=== PATIENT | male | born 1980 | race Caucasian/White ===

== ENCOUNTER → 2019-11-15 07:01 | Outpatient (CLI) | payer OTHER, SELFPAY ==
--- NOTE | 2019-11-15 | DI.MRI.S_ITS ---
PROCEDURE: MR CERVICAL SPINE WO CON INDICATIONS: Radiculopathy, site unspecified TECHNIQUE: Noncontrast sagittal T1 spin echo and T2 fast spin echo, sagittal STIR, foraminal oblique sagittal T2 fast spin echo, and axial gradient echo or T2 fast spin echo through the cervical spine. COMPARISON: None. FINDINGS: Image quality: Excellent. Alignment and Curvature: There is loss of normal cervical lordosis. There is mild grade 1 retrolisthesis of C3 on C4, C4 on C5, and C5 on C6. Bone Marrow: Marrow demonstrates normal overall signal. There is mild reactive signal within the endplates adjacent to the C3-C4, C4-C5, C5-C6, and C6-C7 intervertebral discs. Spinal Cord: Visualized spinal cord has normal size and signal. No cerebellar tonsillar herniation. Paraspinous Soft Tissues: No paravertebral masses. Prevertebral soft tissues are normal in thickness. C2-C3: Mild disc height loss and desiccation. Mild facet and uncovertebral hypertrophy bilaterally. Mild canal stenosis. Mild bilateral foraminal stenosis. C3-C4: Moderate disc height loss and desiccation. Mild diffuse disc bulge. Mild facet and uncovertebral hypertrophy bilaterally. Moderate canal stenosis. Mild bilateral foraminal stenosis. C4-C5: Mild disc height loss and desiccation. Mild diffuse disc bulge with superimposed left far lateral protrusion. Mild facet and uncovertebral hypertrophy bilaterally. Moderate canal stenosis. Moderate left and mild right foraminal stenosis. C5-C6: Moderate disc height loss and desiccation. Mild diffuse disc bulge. Mild facet and uncovertebral hypertrophy bilaterally. Mild canal stenosis. Mild bilateral foraminal stenosis. C6-C7: Mild disc height loss and desiccation. Mild diffuse disc bulge. Mild facet and uncovertebral hypertrophy bilaterally. Mild canal stenosis. Mild bilateral foraminal stenosis. C7-T1: Mild disc desiccation and diffuse disc bulge. Mild facet and uncovertebral hypertrophy bilaterally. Mild canal stenosis. Mild right and greater than left foraminal stenosis. IMPRESSION: 1. Multilevel degenerative disc and facet disease, as well as uncovertebral hypertrophy. 2. Multilevel canal stenosis, worst at C3-C4 and C4-C5, where there are moderate canal stenosis present. 3. Multilevel foraminal stenoses, worst at C4-C5 on the left where there is moderate foraminal stenosis. Dictated by: Little Candelario M.D. on 11/15/2019 at 8:35 Approved by: Little Candelario M.D. on 11/15/2019 at 8:39
== END ==
PROVIDERS: PCP Student in an Organized Health Care Education/Training Program; Referring Provider Student in an Organized Health Care Education/Training Program; Visit Provider Student in an Organized Health Care Education/Training Program
DX: M50.11 Cervical disc disorder with radiculopathy, high cervical region (principal); M48.02 Spinal stenosis, cervical region
CPT/HCPCS: 72141

== ENCOUNTER → 2020-02-13 09:12 | Outpatient (CLI) | payer OTHER, SELFPAY ==
[2020-02-13 10:23] LABS: Hemoglobin A1C% w Est Avg Glu 5.2 % (4.0-6.0)
[2020-02-13 11:05] LABS: Cholesterol 252 mg/dL (140-199); HDL Cholesterol 48 mg/dL (40-60); LDL Cholesterol Calculated 176 mg/dL (<100); Triglycerides 141 mg/dL (35-150)
== END ==
PROVIDERS: PCP Family Medicine; Referring Provider Family Medicine; Visit Provider Family Medicine
DX: Z00.01 Encounter for general adult medical examination with abnormal findings (principal)
CPT/HCPCS: 36415; 80061; 83036

== ENCOUNTER → 2022-05-07 09:17 | Outpatient (CLI) | payer OTHER, SELFPAY ==
[2022-05-07 10:11] LABS: Add Manual Diff / Slide Review NO; Basophils Absolute Auto 0 /uL (0-100); Basophils Percent Auto 0.7 % (0-2); Eosinophils Absolute Auto 100 /uL (0-450); Eosinophils Percent Auto 2.3 % (2-4); Hematocrit 46.1 % (41-53); Hemoglobin 15.9 g/dL (13.5-17.5); Lymphocytes Absolute Auto 1500 /uL (1100-4500); Lymphocytes Percent Auto 31.8 % (25-40); Mean Corpuscular HGB Conc 34.5 % (30-36); Mean Corpuscular Hemoglobin 31.4 PG (26-34); Mean Corpuscular Volume 90.8 fL (80-100); Monocytes Absolute Auto 700 /uL (0-900); Neutrophils Absolute Auto 2400 /uL (1500-7000); Neutrophils Percent Auto 50.2 % (50-75); Platelet Count 148 X10^3/uL (150-400); Red Blood Cell Count 5.08 X10^6/uL (4.5-5.9); Red Cell Distribution Width 13.5 % (11.6-14.8); White Blood Cell Count 4.8 X10^3/uL (4.5-11.0)
[2022-05-07 10:34] LABS: Alanine Aminotransferase 86 IU/L (<50); Albumin 4.6 g/dL (3.5-5.0); Albumin Globulin Ratio 1.5 (1.0-2.8); Alkaline Phosphatase 60 U/L (38-126); Aspartate Aminotransferase 45 IU/L (17-59); BUN Creatinine Ratio 19.5 (6-22); Bilirubin Total 0.8 mg/dL (0.2-1.3); Blood Urea Nitrogen 17 mg/dL (9-20); Calcium 9.5 mg/dL (8.4-10.2); Carbon Dioxide 29 mmol/L (22-32); Chloride 102 mmol/L (98-107); Cholesterol 266 mg/dL (140-199); Estimated Glomerular Filt Rate > 60 mL/min (>60); Glucose 97 mg/dL (70-100); HDL Cholesterol 46 mg/dL (40-60); HEMOLYSIS < 15 (0-50); LDL Cholesterol Calculated 179 mg/dL (<100); Potassium 4.8 mmol/L (3.4-5.1); Sodium 139 mmol/L (137-145); Total Protein 7.6 g/dL (6.3-8.2); Triglycerides 204 mg/dL (35-150)
== END ==
PROVIDERS: PCP Family Medicine; Referring Provider Family Medicine; Visit Provider Family Medicine
DX: E78.2 Mixed hyperlipidemia (principal); M47.812 Spondylosis without myelopathy or radiculopathy, cervical region; M48.02 Spinal stenosis, cervical region
CPT/HCPCS: 36415; 80053; 80061; 85025

== ENCOUNTER → 2023-02-14 15:21 | Outpatient (CLI) | payer OTHER, SELFPAY ==
--- NOTE | 2023-02-14 15:23 | DI.US.S_ITS ---
PROCEDURE: US SCROTUM INDICATIONS: PEA SIZED LUMP X 2 WEEKS LEFT LATERAL TO BASE OF PENIS TECHNIQUE: Real-time scanning was performed of the scrotum and testicles, with image documentation. Color and pulse Doppler interrogation was performed of both testicles. COMPARISON: None. FINDINGS: Right: Testicle is normal in size at 4.8 x 2.7 x 1.9 cm, and homogenous in echotexture. Epididymis is normal in overall size and morphology. Epididymal head cyst measuring 0.5 cm. No hydrocele or varicoceles. Overlying scrotal skin is normal in thickness. Left: Testicle is normal in size at 4.8 x 2.9 x 1.9 cm, and homogeneous in echotexture. Macro calcification in the right testicle measuring 0.3 cm. Epididymis is normal in overall size and morphology. Epididymal head cyst measuring 0.5 cm. No hydrocele or varicoceles. Overlying scrotal skin is normal in thickness. Palpable abnormality at the left groin corresponds to an oval subcutaneous heterogeneous hypoechoic mass lateral to the base of the penis measuring 1 x 0.8 x 0.6 cm. There is internal vascularity and calcification. Doppler: Color and pulse Doppler demonstrate normal and symmetric arterial flow in both testicles. IMPRESSION: 1. Palpable abnormality at the left groin corresponds to a subcutaneous hypoechoic mass with internal vascularity and calcifications measuring 1 cm. Etiology is uncertain. Ultrasound-guided biopsy could be considered for further diagnosis. Consider urology consultation. 2. Small benign calcification in the left testicle measuring 3 mm. No testicular mass. 3. Small benign epididymal head cysts bilaterally. 4. No varicocele. No hydrocele. Dictated by: Felice Obregon M.D. on 02/14/2023 at 19:24 Approved by: Felice Obregon M.D. on 02/14/2023 at 19:45
== END ==
PROVIDERS: PCP Family Medicine; Referring Provider Family Medicine; Visit Provider Family Medicine
DX: N48.89 Other specified disorders of penis (principal); N50.3 Cyst of epididymis; N50.9 Disorder of male genital organs, unspecified
CPT/HCPCS: 76870

== ENCOUNTER → 2023-05-25 10:11 | Outpatient (CLI) | payer OTHER, SELFPAY ==
[2023-05-25 11:24] LABS: Add Manual Diff / Slide Review NO; Basophils Absolute Auto 0 /uL (0-100); Basophils Percent Auto 0.5 % (0-2); Eosinophils Absolute Auto 100 /uL (0-450); Eosinophils Percent Auto 2.5 % (2-4); Hematocrit 46.9 % (41-53); Hemoglobin 15.9 g/dL (13.5-17.5); Lymphocytes Absolute Auto 1200 /uL (1100-4500); Lymphocytes Percent Auto 33.5 % (25-40); Mean Corpuscular Hemoglobin 30.8 PG (26-34); Mean Corpuscular Volume 90.7 fL (80-100); Monocytes Absolute Auto 600 /uL (0-900); Monocytes Percent Auto 16.5 % (3-14); Neutrophils Absolute Auto 1800 /uL (1500-7000); Platelet Count 169 X10^3/uL (150-400); Red Blood Cell Count 5.17 X10^6/uL (4.5-5.9); Red Cell Distribution Width 13.2 % (11.6-14.8); White Blood Cell Count 3.7 X10^3/uL (4.5-11.0)
[2023-05-25 11:43] LABS: Alanine Aminotransferase 88 IU/L (<50); Albumin 4.6 g/dL (3.5-5.0); Albumin Globulin Ratio 1.4 (1.0-2.8); Alkaline Phosphatase 54 U/L (38-126); Aspartate Aminotransferase 58 IU/L (17-59); BUN Creatinine Ratio 24.1 (6-22); Bilirubin Total 0.8 mg/dL (0.2-1.3); Blood Urea Nitrogen 19 mg/dL (9-20); Calcium 9.7 mg/dL (8.4-10.2); Carbon Dioxide 28 mmol/L (22-32); Chloride 100 mmol/L (98-107); Cholesterol 275 mg/dL (140-199); Estimated Glomerular Filt Rate > 60 mL/min (>60); Globulin 3.2 g/dL (1.7-4.1); Glucose 94 mg/dL (70-100); HDL Cholesterol 47 mg/dL (40-60); HEMOLYSIS < 15 (0-50); LDL Cholesterol Calculated 200 mg/dL (<100); Potassium 4.7 mmol/L (3.4-5.1); Sodium 137 mmol/L (137-145); Total Protein 7.8 g/dL (6.3-8.2); Triglycerides 140 mg/dL (35-150)
[2023-05-25 12:14] LABS: TSH w/ Reflex to FT4 1.22 uIU/mL (0.47-4.68)
[2023-05-27 04:09] LABS: Apolipoprotein B 148 mg/dL (<90)
[2023-05-29 21:28] LABS: Lipoprotein (a) 91.4 nmol/L (<75.0)
== END ==
PROVIDERS: PCP Family Medicine; Referring Provider Family Medicine; Visit Provider Family Medicine
DX: E78.5 Hyperlipidemia, unspecified (principal); Z80.0 Family history of malignant neoplasm of digestive organs; R74.8 Abnormal levels of other serum enzymes; Z82.49 Family history of ischemic heart disease and other diseases of the circulatory system
CPT/HCPCS: 36415; 80053; 80061; 82172; 83695; 84443; 85025

== ENCOUNTER → 2023-09-13 06:51 | Outpatient (CLI) | payer OTHER, SELFPAY ==
--- NOTE | 2023-09-13 06:52 | DI.ECHO.S_ITS ---
[facility] : : [address] : : [place] : : [id number] : : Phone: [phone] Echocardiogram Report + + :Name: ANNA HOOD Study Date: 09/13/2023 Height: 68 in : :Hospital ReadingLocation: Weight: 167 lb : : Gender: Male BSA: 1.9 m2 : :: 1980 Age: 43 yrs BP: 120/75 mmHg: :Reason For Study: SYSTOLIC MURMUR : :Ordering Physician: MADELYN KERR Performed By: Keturah Alvarado : :Referring: MADELYN KERR : + + Interpretation Summary 1. The left ventricular contractility is normal. Estimated ejection fraction is greater than 60% with no segmental wall motion abnormalities. No left ventricular hypertrophy present. Normal diastolic function. 2. The right ventricular contractility is normal. 3. The right ventricular cavity is mildly dilated. All other cardiac chambers are normal size. 4. No significant valvular abnormalities are appreciated. 5. No obvious intracardiac shunts. 6. No obvious intracardiac masses nor thrombi appreciated. 7. No hemodynamically significant pericardial effusion present. Conclusion: Normal biventricular function with mildly enlarged right ventricle with no significant valvular abnormalities nor intracardiac shunts. Procedure: A two-dimensional transthoracic echocardiogram with color flow and Doppler was performed. The study quality was technically adequate. There is no prior echocardiogram noted for this patient. The patient was in sinus rhythm with heart rates between 63-73 bpm during the exam. Left Ventricle: The left ventricle is normal in size and wall thickness. The ejection fraction is estimated to be 60-65%. Right Ventricle: The right ventricle is mildly dilated. The right ventricular systolic function is normal. Atria: The left atrial size is normal. The right atrium is normal in size. There is no Doppler evidence for an interatrial shunt. Mitral Valve: The mitral valve is normal in structure and function. There is trace mitral regurgitation. Aortic Valve: The aortic valve is trileaflet. The aortic valve opens well. There is no aortic valve stenosis. No aortic regurgitation is present. Tricuspid Valve: The tricuspid valve is normal in structure and function. There is trace tricuspid regurgitation. Pulmonic Valve: The pulmonic valve leaflets are thin and pliable; valve motion is normal. There is mild pulmonic regurgitation. Great Vessels: The aortic root is normal size. The dimensions of the ascending aorta are normal. The IVC is of normal diameter and collapses greater than 50% with a sniff. This suggests a low right atrial pressure of 3 mm Hg. Pericardium/ Pleura There is no pericardial effusion. There is no pleural effusion. MMode/2D Measurements & Calculations LVIDd: 4.7 cm LVOT diam: 2.1 cm LVIDs: 2.9 cm Ao root diam: 3.3 cm FS: 37.7 % asc Aorta Diam: 3.5 cm IVSd: 1.0 cm Ao Arch Diam (Prox Trans): 2.7 cm LVPWd: 1.0 cm LV gomes. diameter/BSA (cm/m^2): 2.5 LV sys. diameter/BSA (cm/m^2): 1.6 LA A2 area: 19.7 cm2 RA long axis: 4.9 cm LA A4 area: 15.7 cm2 RA area: 15.6 cm2 LA length (vol): 5.2 cm RA vol: 42.0 ml LA vol: 50.9 ml RA : 22.2 ml/m2 LA vol index: 26.9 ml/m2 IVC diam: 1.8 cm RVD1 (basal): 4.5 cm RVD2 (mid): 3.6 cm TAPSE: 1.7 cm Doppler Measurements & Calculations Ao V2 max: 124.5 cm/sec LVOT Max Kt: 109.5 cm/sec Ao V2 mean: 91.7 cm/sec LV V1 max P.8 mmHg Ao max P.2 mmHg LV V1 VTI: 21.4 cm Ao mean P.7 mmHg COLTEN(I,D): 3.1 cm2 Ao V2 VTI: 24.6 cm COLTEN(V,D): 3.2 cm2 sev ratio: 0.87 COLTEN indexed to BSA (cm^2/m^2): 1.6 MV E max kt: 66.3 cm/sec PA V2 max: 115.4 cm/sec MV A max kt: 47.8 cm/sec PA V2 mean: 81.8 cm/sec MV E/A: 1.4 PA mean P.0 mmHg Med Peak E' Kt: 10.3 cm/sec PA pr(Accel): 17.3 mmHg E/E' med: 6.4 Lat Peak E' Kt: 15.8 cm/sec E/E' lat: 4.2 E/e' average: 5.3 MV dec time: 0.30 sec SV(LVOT): 76.5 ml Reading Physician:
== END ==
LOC: ECHO 06:52
PROVIDERS: PCP Family Medicine; Referring Provider Internal Medicine; Visit Provider Internal Medicine
DX: I37.1 Nonrheumatic pulmonary valve insufficiency (principal); R01.1 Cardiac murmur, unspecified
CPT/HCPCS: 93306

== ENCOUNTER 2024-02-01 16:16 | Emergency (ER) | payer OTHER, SELFPAY ==
[2024-02-01 16:21] VITALS: BP 152/72; PULSE 67; RESP 17; TEMP 36.6; O2SAT 97; BMI 25.8
--- NOTE | 2024-02-01 16:25 | DI.RAD.S_ITS ---
PROCEDURE: XR FINGER RT MIN 2V INDICATIONS: injury TECHNIQUE: AP hand, 2 views of the 4th finger(s) acquired. COMPARISON: None. FINDINGS: Bones: No fractures or dislocations. No suspicious bony lesions. Soft tissues: No suspicious soft tissue calcifications. IMPRESSION: No displaced fractures can be seen on this study. Dictated by: Michael Sotelo M.D. on 02/01/2024 at 15:52 Approved by: Michael Sotelo M.D. on 02/01/2024 at 15:52
--- NOTE | 2024-02-01 17:57 | ED.UPPEXIN ---
HPI - Extremity Injury (Upper) <Yolanda Garcia PA-C - Last Filed: 02/02/24 10:53> General Chief Complaint: Extremity Injury, Upper Stated Complaint: crushed right ring finger Time Seen by Provider: 02/01/24 17:57 Source: patient Mode of arrival: Ambulatory History of Present Illness HPI narrative: Patient is a very pleasant 43-year-old male that presents to the emergency room department with complaints of right ring finger soft tissue swelling, bruising. Patient is concerned because the distal aspect of his ring middle finger is bruised, and has some temperature change. Patient was working out this morning, he was doing a kettle zepeda workout, he was on his knees, he was doing and a workout, and was rotating the kettle zepeda around his head, kind of lost control of the Kettle zepeda and fell to the side and ended up having the 35 lb kettle zepeda land on his right hand contusing the right ring finger. Patient went about his day today, meetings, no issues no problems and then he noted later today that the finger started to get more bruised, increasing swelling, and then he noticed some mild temperature changes. He does not currently have a substantial amount of pain, he does have some mild limited range of motion at the PIP joint, cap refill is mildly delayed, he has been attempting to elevate it while he has been here in the emergency department. He did not elevate it throughout the day he has been working at home and doing his normal activities, doing meetings, using the phone, and using his hands. Currently this time he has does not have any other further complaints. Related Data Home Medications Medication Instructions Recorded Confirmed atorvastatin 20 mg tablet 20 mg PO DAILY 02/01/24 02/01/24 Allergies Allergy/AdvReac Type Severity Reaction Status Date / Time No Known Drug Allergies Allergy Verified 02/01/24 16:24 Review of Systems <Yolanda Garcia PA-C - Last Filed: 02/02/24 10:53> Review of Systems Narrative: Negative except as above Musculoskeletal Comments: Right ring finger bruising, distal aspect, limited range motion, some temperature change, mild delay in cap refill. Patient History <Yolanda Garcia PA-C - Last Filed: 02/02/24 10:53> Medical History Spermatocele Family history of aortic stenosis Liver enzyme elevation Family hx of colon cancer Neoplasm of uncertain behavior of skin Hyperlipidemia Neck pain (~2017) Shoulder pain (~2014) Chronic back pain (~2016) Chicken pox Common wart Cervical stenosis of spine Cervical spine degeneration Surgical History History of vasectomy (~09/2019) H/O circumcision Infantile hernia (~1979) Family History Grandfather Cancer Grandfather Diabetes mellitus Father Cancer Gout Kidney stones Grandmother Cancer Social History marital status: number of children: 4 housing: house education level: college occupational status: employed Previous occupational history: Executive Smoking Status: Never smoker alcohol intake: current (Social, infrequent) caffeine: Yes Type(s) of exercise: bicycling, weight lifting and running frequency: 5-6 times per week duration: > 90 minutes/day Smoking Status: Never smoker alcohol intake frequency: a few times a week Substance Use Type: does not use Exam <Yolanda Garcia PA-C - Last Filed: 02/02/24 10:53> Initial Vital Signs Initial Vital Signs: Vital Signs Temperature 98 F 02/01/24 16:21 Pulse Rate 67 02/01/24 16:21 Respiratory Rate 17 02/01/24 16:21 Blood Pressure 152/72 H 02/01/24 16:21 Pulse Oximetry 97 02/01/24 16:21 Oxygen Delivery Method Room Air 02/01/24 16:21 reviewed Const General: cooperative, healthy appearing, comfortable, well developed, well groomed, acute distress, No in distress and No anxious Eyes General: Yes appearance normal, both eyes and all related structures Pupils: PERRL and normal by confrontation EOM: EOM intact bilaterally Skin Other: Bruising noted to the distal aspect of the right ring finger, mildly delayed cap refill, mild coolness noted, pulses are still present, range of motion is not impacted. Neuro Other: Cranial nerves are grossly intact Extrem Other: Range of motion, strength, pulses, cap refill preserved in the upper and lower extremities The right hand range of motion, strength, pulses, cap refill are preserved. Examination of the right thing ring finger shows range motion at the PIP joint is mildly decreased, there is a moderate amount of soft tissue swelling, bruising noted to the distal aspect of the right ring finger, some mild discomfort and pain with palpation, mild decrease in cap refill, there some mild coolness noted on exam. Patient has not been elevating the hand. Cap refill distal to the finger is intact. Pulses are present. There is no substantial discomfort or pain with movement of the finger. There was no sharp shooting pains, there is no numbness or tingling, patient still has discomfort and pain upon examination. Psych Other: Apparent, mental status, speech, movement, mood, affect, attitude, thought process, content, judgment are intact. <Helen Chacon MD - Last Filed: 02/02/24 18:50> Initial Vital Signs Initial Vital Signs: Vital Signs Temperature 98 F 02/01/24 16:21 Pulse Rate 67 02/01/24 16:21 Respiratory Rate 17 02/01/24 16:21 Blood Pressure 152/72 H 02/01/24 16:21 Pulse Oximetry 97 02/01/24 16:21 Oxygen Delivery Method Room Air 02/01/24 16:21 Scores <Yolanda Garcia PA-C - Last Filed: 02/02/24 10:53> GCS Citation: 15 Course <Yolanda Garcia PA-C - Last Filed: 02/02/24 10:53> Orders Ordered: ED Orders 02/01/24 16:25 XR finger RT min 2V Stat Vital Signs Vital signs: Vital Signs - 8 hr 02/01/24 16:21 Temperature 98 F Pulse Rate 67 Respiratory Rate 17 Blood Pressure 152/72 H Pulse Oximetry 97 Oxygen Delivery Method Room Air Reviewed <Helen Chacon MD - Last Filed: 02/02/24 18:50> Orders Ordered: ED Orders 02/01/24 16:25 XR finger RT min 2V Stat Vital Signs Vital signs: Vital Signs - 8 hr 02/01/24 16:21 Temperature 98 F Pulse Rate 67 Respiratory Rate 17 Blood Pressure 152/72 H Pulse Oximetry 97 Oxygen Delivery Method Room Air MDM - Extremity Injury (Upper) <Yolanda Garcia PA-C - Last Filed: 02/02/24 10:53> Imaging Data Extremity x-ray #1: Radiologist's Impression: [address] [address] XRay Report Signed Patient: Chele Peraza MR#: [id number] : 1980 Acct:[id number] Age/Sex: 43 / M Date of Service: 02/01/24 Loc: ED Accession Number: [id number] Procedure: XR finger RT min 2V Ordering Provider: Helen Chacon MD PROCEDURE: XR FINGER RT MIN 2V INDICATIONS: injury TECHNIQUE: AP hand, 2 views of the 4th finger(s) acquired. COMPARISON: None. FINDINGS: Bones: No fractures or dislocations. No suspicious bony lesions. Soft tissues: No suspicious soft tissue calcifications. IMPRESSION: No displaced fractures can be seen on this study. Dictated by: Michael Sotelo M.D. on 02/01/2024 at 15:52 Approved by: Michael Sotelo M.D. on 02/01/2024 at 15:52 [facility] Narrative Medical decision making narrative: Patient is a very pleasant 43-year-old male presents to the emergency department today with discomfort pain and soft tissue swelling bruising, and the pad of the right distal ring finger. Patient dropped a 35 lb kettle bowel on the right ring finger earlier today while he was working out. Patient now presents to the emergency room department with concerns of soft tissue swelling, some discomfort and pain but some mild coolness in the distal tip. Limited range of motion at the PIP joint, x-rays negative for acute fracture. Cap refill is mildly delayed, pulses are present. Limited range of motion. Currently at this time pulses are present, cap refill is mildly delayed, some mild coolness, no signs for subungual hematoma, some mild discomfort on range of motion. Supportive therapy education, ED precautions, reassurance, reasons to present back to the emergency department. Differential diagnosis; crush injury finger contusion, Suggest compression dressing, return back if increasing discomfort and pain underneath the nailbed might need trepidation of the nailbed. Discharge Plan Departure Patient Disposition: Home Clinical Impression: Contusion of finger without damage to nail Qualifiers: Encounter type: initial encounter Finger: ring finger Laterality: right Qualified Code(s): S60.041A - Contusion of right ring finger without damage to nail, initial encounter Activity Restrictions/Additional Instructions: Continue with range of motion consider a squeeze ball Ibuprofen as needed, Tylenol as needed Consider taking a baby aspirin daily Gentle massage of the finger Compression such as [place] to help decrease the swelling Return to the emergency department as needed Elevate the finger as much as you can tolerate Actually would use heat and not ice Monitor the swelling, if you have increased swelling or increased pain you might need to have a hole made in the nailbed, sometimes you can get what is called a subungual hematoma underneath the nailbed which causes discomfort and pain, and if you put a hole in the nailbed it releases the blood and releases discomfort and pain and pressure. Currently at this time I do not see that usually people have a substantial amount of discomfort and pain when this happens. If this becomes an issue or problem please return back to the emergency department. They will not be able to take care of this in the walk-in clinic. Prescriptions: No Action atorvastatin 20 mg tablet 20 mg PO DAILY Referrals: Omar Redd MD [Primary Care Provider] - Stand Alone Forms: Patient Portal/API ED Sign-out <Helen Chacon MD - Last Filed: 02/02/24 18:50> Cosign ED Attending Cosignature Attestation: I was immediately available in the department for consultation throughout this patient's visit. Helen Chacon MD
--- NOTE | 2024-02-01 17:59 | PC.NURSE ---
Pt reports no pain now. Discoloration noted to 4th digit. Cap refill <2 seconds. Pt states he was working out this morning when his finger got hurt by a kettle zepeda. Pt states he was worried about circulation [place].
[2024-02-01 18:24] VITALS: BP 118/60; PULSE 74; RESP 16; O2SAT 96
== END 2024-02-01 18:31 | disposition home or self-care (01) ==
PROVIDERS: Emergency Provider Physician Assistant; PCP Family Medicine
DX: S60.041A Contusion of right ring finger without damage to nail, initial encounter (principal); W23.0XXA Caught, crushed, jammed, or pinched between moving objects, initial encounter
CPT/HCPCS: 73140; 99281; 99283

== ENCOUNTER → 2024-09-17 10:16 | Outpatient (CLI) | payer OTHER, SELFPAY ==
[2024-09-17 11:02] LABS: Add Manual Diff / Slide Review NO; Basophils Absolute Auto 0 /uL (0-100); Basophils Percent Auto 0.1 % (0-2); Eosinophils Absolute Auto 100 /uL (0-450); Hematocrit 42.7 % (41-53); Hemoglobin 14.8 g/dL (13.5-17.5); Lymphocytes Absolute Auto 1100 /uL (1100-4500); Lymphocytes Percent Auto 29.3 % (25-40); Mean Corpuscular HGB Conc 34.6 % (30-36); Mean Corpuscular Hemoglobin 31.6 PG (26-34); Mean Corpuscular Volume 91.4 fL (80-100); Monocytes Absolute Auto 600 /uL (0-900); Monocytes Percent Auto 16.7 % (3-14); Neutrophils Absolute Auto 2000 /uL (1500-7000); Neutrophils Percent Auto 51.9 % (50-75); Platelet Count 155 X10^3/uL (150-400); Red Blood Cell Count 4.68 X10^6/uL (4.5-5.9); White Blood Cell Count 3.9 X10^3/uL (4.5-11.0)
[2024-09-17 11:26] LABS: Alanine Aminotransferase 171 IU/L (<50); Albumin 4.9 g/dL (3.5-5.0); Albumin Globulin Ratio 2.3 (1.0-2.8); Alkaline Phosphatase 86 U/L (38-126); Aspartate Aminotransferase 92 IU/L (17-59); BUN Creatinine Ratio 14.4 (6-22); Bilirubin Total 0.9 mg/dL (0.2-1.3); Blood Urea Nitrogen 14 mg/dL (9-20); Calcium 9.6 mg/dL (8.4-10.2); Carbon Dioxide 25 mmol/L (22-32); Chloride 98 mmol/L (98-107); Cholesterol 161 mg/dL (140-199); Estimated Glomerular Filt Rate > 60 mL/min (>60); Globulin 2.1 g/dL (1.7-4.1); Glucose 104 mg/dL (70-99); HDL Cholesterol 51 mg/dL (40-60); HEMOLYSIS < 15 (0-50); LDL Cholesterol Calculated 92 mg/dL (<100); Potassium 4.6 mmol/L (3.4-5.1); Sodium 135 mmol/L (137-145); Triglycerides 91 mg/dL (35-150)
[2024-09-17 11:56] LABS: TSH w/ Reflex to FT4 0.77 uIU/mL (0.47-4.68)
[2024-09-18 05:14] LABS: Apolipoprotein B 81 mg/dL (<90)
== END ==
PROVIDERS: PCP Family Medicine; Referring Provider Family Medicine; Visit Provider Family Medicine
DX: Z00.00 Encounter for general adult medical examination without abnormal findings (principal); Z12.5 Encounter for screening for malignant neoplasm of prostate; E78.5 Hyperlipidemia, unspecified; R74.8 Abnormal levels of other serum enzymes; R53.82 Chronic fatigue, unspecified; Z82.49 Family history of ischemic heart disease and other diseases of the circulatory system
CPT/HCPCS: 36415; 80053; 80061; 82172; 84402; 84403; 84443; 85025; G0103

== ENCOUNTER 2025-01-23 11:23 | Day surgery (SDC) | payer OTHER, SELFPAY ==
[2025-01-23] MEDS: LACTATED RINGERS 1,000 ML 42 ML IV (11:48)
[2025-01-23 11:54] VITALS: BP 114/74; PULSE 77; RESP 16; TEMP 36.3; O2SAT 98
--- NOTE | 2025-01-23 12:20 | PM.HP.IH.1 ---
History of Present Illness History of Present Illness Date Patient Seen: 01/23/25 Chief complaint: SDC Narrative: Family history of colon cancer and polyps. Need for follow-up colonoscopy. [facility] Medical History (Updated 08/23/24 @ 13:18 by Omar Redd MD) Chronic fatigue Spermatocele Family history of aortic stenosis Liver enzyme elevation Family hx of colon cancer Neoplasm of uncertain behavior of skin Hyperlipidemia Neck pain (~2016) Shoulder pain (~2014) Chronic back pain (~2016) Chicken pox Common wart Cervical stenosis of spine Cervical spine degeneration Surgical History History of vasectomy (~09/2019) H/O circumcision Infantile hernia (~1979) Family History Grandfather Cancer Grandfather Diabetes mellitus Father Cancer Gout Kidney stones Grandmother Cancer Social History marital status: number of children: 4 housing: house education level: college occupational status: employed Previous occupational history: Executive Smoking Status: Never smoker alcohol intake: current caffeine: Yes Type(s) of exercise: bicycling, weight lifting and running frequency: 5-6 times per week duration: > 90 minutes/day Meds Home Medications and Allergies Home Medications ?Medication ?Instructions ?Recorded ?Confirmed ?Type atorvastatin 20 mg tablet 20 mg PO DAILY #90 tabs 07/24/24 01/23/25 Rx Allergies Allergy/AdvReac Type Severity Reaction Status Date / Time No Known Drug Allergies Allergy Verified 01/23/25 11:49 Exam Vital Signs (past 8 hours): - 01/23/25 11:54 Temperature 97.4 F L Pulse Rate 77 Respiratory Rate 16 Blood Pressure 114/74 Pulse Oximetry 98 Oxygen Delivery Method Room Air Oxygen Delivery Method Room Air Narrative Exam Narrative: Oropharynx free of lesions Chest clear to auscultation percussion Cardiac exam reveals no S3 or murmur Assessment & Plan Assessment & Plan narrative: Family history of colon cancer and colon polyps. Risks, benefits, have been discussed. Time-Based Coding :: [TOTAL MINUTES] spent with patient and on the chart (including review of chart, obtaining history, exam, reviewing outside data, placing orders, documenting exam and treatment plan, and counseling patient) on [DATE]. PROFEE Senior [employer]er Document charge(s): No
--- NOTE | 2025-01-23 12:22 | PM.OP.COLON ---
Operative Date/Time/Diagnoses Date of procedure: 01/23/25 Time of procedure: 13:03 Pre-op diagnosis: See indication and findings Post-op diagnosis: same Procedure & Clinicians Study performed: Colonoscopy Same procedure(s) as scheduled: No Indications: Family history of colon cancer in a paternal grandfather and colon polyps in his brother. Possible colon polyps in patient's 1st colonoscopy. Surgeon: Chevy Campos Anesthesia Type: Other Procedure Notes Procedure in detail: After informed consent was obtained the patient was placed in left lateral decubitus position. The video colonoscope was placed in the rectum slowly passed the cecum. Preparation was good. On slow withdrawal mucosa was carefully examined. The scope was removed. The patient tolerated procedure well. Blood loss none Complications none Sedation mac Findings 1. Normal colonoscopy to cecum Patient should have follow-up colonoscopy in 5 years. Genetic testing for colon cancer might be considered in his brother.
[2025-01-23 12:55] VITALS: BP 103/54; PULSE 85; RESP 11; TEMP 36.4; O2SAT 99
[2025-01-23 13:00] VITALS: BP 106/58; PULSE 78; RESP 17; O2SAT 97
[2025-01-23 13:07] VITALS: BP 113/72; PULSE 77; RESP 16; TEMP 36.3; O2SAT 97
== END 2025-01-23 13:24 | disposition home or self-care (01) ==
PROVIDERS: PCP Family Medicine; Referring Provider Family Medicine; Visit Provider Internal Medicine Gastroenterology
PROC: 0DJD8ZZ Inspection of Lower Intestinal Tract, Via Natural or Artificial Opening Endoscopic (ICD-10-PCS; CPT 45378; principal; 2025-01-23 12:30)
DX: Z12.11 Encounter for screening for malignant neoplasm of colon (principal); Z83.719 Family history of colon polyps, unspecified
CPT/HCPCS: 45378; J2704; J3010; J7120